=== PATIENT | female | born 1985 | race Caucasian/White ===

== ENCOUNTER 2017-02-07 19:55 | Emergency (ER) | payer MEDICAID ==
[~2017-02-07] VITALS: Ht 172.7 cm; Wt 53.6 kg
[~2017-02-07 19:55] MED LIST: ACET-66 PO; ALBU8.5H IH; ASPI-825 PO; BACL10TA PO; BUDE10.2 IH; BUSP15 PO; CARAL PO; CETI-260 PO; DICY10 PO; DIPH25 PO; FISH1CAP49 PO; FLUT16H NASAL; FURO20I IM; GABA600T PO; GARL600T2 PO; KDUR10 PO; LORA10TA7 PO; METO25 PO; MONT10TA21 PO; NITR.4 SL; OMEP20 PO; ONDA4 PO; PRED10 PO; RANI150T7 PO; SUMA25TA9 PO
[2017-02-07] MEDS ORDERED: SACU1TAB PO (20:11)
[2017-02-07] MEDS ORDERED: METO50 PO (20:11)
[2017-02-07 20:57] LABS: BASOPHILS % (AUTO) 0.1 % (0.0-2.0); EOSINOPHILS % (AUTO) 0.1 % (1.0-6.0); HEMATOCRIT 41.6 % (36-46); HEMOGLOBIN 14.3 g/dL (12.0-16.0); LYMPHOCYTES # (AUTO) 1.3 K/uL (1.0-4.8); LYMPHOCYTES % (AUTO) 12.5 % (22.0-44.0); MEAN CORPUSCULAR HEMOGLOBIN 33.4 pg (26.0-34.0); MEAN CORPUSCULAR HGB CONC 34.3 G/dL (31.0-37.0); MEAN CORPUSCULAR VOLUME 97 fL (80-100); MONOCYTES # (AUTO) 0.8 K/uL (0.1-1.0); MONOCYTES % (AUTO) 7.9 % (2.0-9.0); NEUTROPHILS # (AUTO) 8.4 K/uL (1.8-7.7); NEUTROPHILS % (AUTO) 79.4 % (40.0-70.0); PLATELET COUNT (AUTO) 240 K/uL (150-450); RED BLOOD CELL COUNT(AUTO) 4.28 MIL/uL (4.00-5.20); RED CELL DISTRIBUTION WIDTH 14.3 % (11.5-14.5); WHITE BLOOD COUNT (AUTO) 10.5 K/uL (4.5-11.0)
[2017-02-07 21:04] LABS: ANION GAP 7 mmol/L (8-16); CALCIUM, TOTAL 8.9 mg/dL (8.8-10.5); CARBON DIOXIDE 29 mmol/L (22-29); CHLORIDE 104 mmol/L (98-107); CREATININE 0.88 mg/dL (0.60-1.30); GLOMERULAR FILTR. RATE CALC > 60 mL/min (>60); SODIUM SERUM 140 mmol/L (136-145); UREA NITROGEN, BLOOD 14 mg/dL (7-18)
[2017-02-07 21:10] LABS: ALANINE AMINOTRANSFERASE 28 U/L (12-78); ALBUMIN 4.1 g/dL (3.4-5.0); ASPARTATE AMINOTRANSFERASE 19 U/L (15-37); BILIRUBIN,TOTAL 0.2 mg/dL (0.1-1.0); TOTAL PROTEIN, SERUM 6.8 g/dL (6.4-8.2)
[2017-02-07 21:33] LABS: ADD UA MICROSCOPIC NO; APPEARANCE,URINE CLEAR (CLEAR); GLUCOSE, URINE (UA) NEGATIVE (NEGATIVE); KETONES,URINE NEGATIVE (NEGATIVE); LEUKOCYTE ESTERASE ,URINE NEGATIVE (NEGATIVE); OCCULT BLOOD,URINE NEGATIVE (NEGATIVE); PROTEIN,URINE NEGATIVE (NEGATIVE)
[2017-02-07 22:52] VITALS: BP 121/79
== END 2017-02-07 23:21 | disposition home or self-care (01) ==
LOC: EMS 19:59
DX: K59.00 Constipation, unspecified (principal); I50.9 Heart failure, unspecified; N28.9 Disorder of kidney and ureter, unspecified; F17.210 Nicotine dependence, cigarettes, uncomplicated; Z88.1 Allergy status to other antibiotic agents; Z87.442 Personal history of urinary calculi
CPT/HCPCS: 74176; 99285

== ENCOUNTER 2017-04-22 14:49 | Emergency (ER) | payer MEDICAID ==
[~2017-04-22] VITALS: Ht 157.5 cm; Wt 46.5 kg
[~2017-04-22 14:49] MED LIST changes: +METO50 PO; -OMEP20 PO; +SACU1TAB PO
[2017-04-22] MEDS ORDERED: PERTUSS(ACELL),DIPH,TET VAC/PF 0.5 ML VIAL IM ONE (17:15)
[2017-04-22] MEDS ORDERED: GARL400T2 PO (17:21)
[2017-04-22] MEDS ORDERED: SUMA100T PO (17:21)
[2017-04-22] MEDS ORDERED: SLOWK8 PO (17:21)
[2017-04-22 17:30] VITALS: BP 110/59
== END 2017-04-22 17:32 | disposition home or self-care (01) ==
LOC: EMS 14:55
DX: S60.561A Insect bite (nonvenomous) of right hand, initial encounter (principal); I50.9 Heart failure, unspecified; G40.909 Epilepsy, unspecified, not intractable, without status epilepticus; F17.210 Nicotine dependence, cigarettes, uncomplicated; Z85.89 Personal history of malignant neoplasm of other organs and systems; Z87.442 Personal history of urinary calculi; Z79.82 Long term (current) use of aspirin; Z79.899 Other long term (current) drug therapy; W57.XXXA Bitten or stung by nonvenomous insect and other nonvenomous arthropods, initial encounter; Y93.89 Activity, other specified; Y92.89 Other specified places as the place of occurrence of the external cause; Y99.8 Other external cause status
CPT/HCPCS: 90471; 90715; 99283

== ENCOUNTER → 2017-12-13 | Outpatient (CLI) | payer MEDICAID ==
[~2017-12-13] MED LIST changes: -ALBU8.5H IH; +ALBU8.5H8 IH; -CETI-260 PO; +CETI-290 PO; +GARL400T2 PO; -GARL600T2 PO; -KDUR10 PO; -METO25 PO; +SLOWK8 PO; +SUMA100T PO; -SUMA25TA9 PO
== END | disposition home or self-care (01) ==
LOC: RADMN 12:50
PROVIDERS: ATTEND Internal Medicine Cardiovascular Disease
DX: I50.20 Unspecified systolic (congestive) heart failure (principal); I42.5 Other restrictive cardiomyopathy
CPT/HCPCS: 78472; Q3010

== ENCOUNTER 2018-03-23 21:11 | Emergency (ER) | payer MEDICAID ==
[~2018-03-23] VITALS: Ht 172.7 cm; Wt 79.5 kg
[2018-03-23] MEDS ORDERED: SACU1TAB7 PO (21:35)
[2018-03-23] MEDS ORDERED: ALEN10 PO (21:35)
[2018-03-23 22:06] LABS: BASOPHILS % (AUTO) 0.2 % (0.0-2.0); EOSINOPHILS % (AUTO) 0.1 % (1.0-6.0); HEMATOCRIT 41.2 % (36-46); HEMOGLOBIN 14.4 g/dL (12.0-16.0); LYMPHOCYTES # (AUTO) 0.5 K/uL (1.0-4.8); LYMPHOCYTES % (AUTO) 5.6 % (22.0-44.0); MEAN CORPUSCULAR HEMOGLOBIN 32.6 pg (26.0-34.0); MEAN CORPUSCULAR VOLUME 93 fL (80-100); MONOCYTES # (AUTO) 0.1 K/uL (0.1-1.0); MONOCYTES % (AUTO) 1.5 % (2.0-9.0); NEUTROPHILS # (AUTO) 8.5 K/uL (1.8-7.7); PLATELET COUNT (AUTO) 207 K/uL (150-450); RED BLOOD CELL COUNT(AUTO) 4.43 MIL/uL (4.00-5.20); RED CELL DISTRIBUTION WIDTH 13.4 % (11.5-14.5)
[2018-03-23 22:07] LABS: NEUTROPHILS % (AUTO) 92.6 % (40.0-70.0)
[2018-03-23 22:15] LABS: ANION GAP 9 mmol/L (8-16); CALCIUM, TOTAL 9.2 mg/dL (8.8-10.5); CARBON DIOXIDE 28 mmol/L (22-29); CHLORIDE 101 mmol/L (98-107); CREATININE 0.82 mg/dL (0.60-1.30); GLOMERULAR FILTR. RATE CALC > 60 mL/min (>60); GLUCOSE,RANDOM 109 mg/dL (70-110); POTASSIUM 3.8 mmol/L (3.5-5.1); SODIUM SERUM 138 mmol/L (136-145); UREA NITROGEN, BLOOD 9 mg/dL (7-18)
[2018-03-23 22:16] LABS: PROTHROMBIN TIME 10.2 SEC (9.4-11.6)
[2018-03-23 22:24] LABS: PLATELET MORPHOLOGY COMMENT LARGE PLTS PRESENT
[2018-03-23 22:26] LABS: B-TYPE NATRIURETIC PEPTIDE 35 pg/mL (0-100)
[2018-03-23 22:33] LABS: APPEARANCE,URINE CLEAR (CLEAR); BILIRUBIN,URINE NEGATIVE (NEGATIVE); GLUCOSE, URINE (UA) NEGATIVE (NEGATIVE); KETONES,URINE NEGATIVE (NEGATIVE); LEUKOCYTE ESTERASE ,URINE NEGATIVE (NEGATIVE); NITRATE,URINE NEGATIVE (NEGATIVE); OCCULT BLOOD,URINE NEGATIVE (NEGATIVE); PROTEIN,URINE NEGATIVE (NEGATIVE); UROBILINOGEN,URINE 0.2 mg/dL (<=1.0)
[2018-03-23 22:37] LABS: AMPHET/METH SCREEN,URINE NEGATIVE (NEGATIVE); BARBITURATE SCREEN, URINE NEGATIVE (NEGATIVE); BENZODIAZEPINES SCREEN,URINE NEGATIVE (NEGATIVE); CANNABINOID SCREEN,URINE NEGATIVE (NEGATIVE); COCAINE SCREEN,URINE NEGATIVE (NEGATIVE); METHADONE SCREEN, URINE NEGATIVE (NEGATIVE); OPIATE SCREEN,URINE NEGATIVE (NEGATIVE)
[2018-03-23 22:38] LABS: PHENCYCLIDINE SCREEN,URINE NEGATIVE (NEGATIVE)
[2018-03-23 22:39] LABS: ALANINE AMINOTRANSFERASE 29 U/L (12-78); ALKALINE PHOSPHATASE 32 U/L (46-116); ASPARTATE AMINOTRANSFERASE 23 U/L (15-37); BILIRUBIN,TOTAL 0.3 mg/dL (0.1-1.0); CREATINE KINASE MB 0.6 ng/mL (0-5); CREATINE KINASE, TOTAL 91 U/L (26-192); TOTAL PROTEIN, SERUM 7.1 g/dL (6.4-8.2)
[2018-03-24 00:30] VITALS: BP 112/76
== END 2018-03-24 00:31 | disposition home or self-care (01) ==
LOC: EMS 21:12
DX: G43.909 Migraine, unspecified, not intractable, without status migrainosus (principal); J44.9 Chronic obstructive pulmonary disease, unspecified; I50.9 Heart failure, unspecified; K21.9 Gastro-esophageal reflux disease without esophagitis; F17.210 Nicotine dependence, cigarettes, uncomplicated; Z88.1 Allergy status to other antibiotic agents; Z79.899 Other long term (current) drug therapy
CPT/HCPCS: 70450; 93005; 99285; 99406

== ENCOUNTER → 2018-04-11 | Day surgery (SDC) | payer MEDICAID ==
[~2018-04-11] VITALS: Ht 172.7 cm; Wt 53.2 kg
[~2018-04-11] MED LIST changes: +0.9% SODIUM CHLORIDE 10 ML SYRINGE IVP PRN; +ALEN10 PO; +ASCO1TAB43 PO; +CALC-1038 PO; +GABA-533 PO; +IOVERSOL 350 MG/ML 150 ML VIAL ONE; +METOPROLOL TARTRATE 5 MG/5 ML VIAL ONE; +METOPROLOL TARTRATE 50 MG TABLET PO PRN; +MULT-1203 PO; +NITROGLYCERIN 400 MCG/SUBLINGUAL SPRAY 4.9 GM BOTTLE SL ONE; +PRED5 PO; -SACU1TAB PO; +SACU1TAB7 PO; +SODIUM CHLORIDE 0.9% 100 ML ONE; +VITA-328 PO
[2018-04-11 09:31] LABS: ANION GAP 7 mmol/L (8-16); CALCIUM, TOTAL 9.6 mg/dL (8.8-10.5); CARBON DIOXIDE 31 mmol/L (22-29); CHLORIDE 102 mmol/L (98-107); CREATININE 0.93 mg/dL (0.60-1.30); GLOMERULAR FILTR. RATE CALC > 60 mL/min (>60); GLUCOSE,RANDOM 85 mg/dL (70-110); POTASSIUM 4.3 mmol/L (3.5-5.1); SODIUM SERUM 140 mmol/L (136-145); UREA NITROGEN, BLOOD 10 mg/dL (7-18)
== END | disposition home or self-care (01) ==
LOC: SURGERY 08:55 → EDSTATUS 11:00
PROVIDERS: ATTEND Internal Medicine Cardiovascular Disease
DX: I49.8 Other specified cardiac arrhythmias (principal); I49.01 Ventricular fibrillation; F41.8 Other specified anxiety disorders; G89.4 Chronic pain syndrome; J44.9 Chronic obstructive pulmonary disease, unspecified; D89.89 Other specified disorders involving the immune mechanism, not elsewhere classified; F17.210 Nicotine dependence, cigarettes, uncomplicated; F10.21 Alcohol dependence, in remission; M47.814 Spondylosis without myelopathy or radiculopathy, thoracic region; G43.909 Migraine, unspecified, not intractable, without status migrainosus; M85.88 Other specified disorders of bone density and structure, other site; E05.80 Other thyrotoxicosis without thyrotoxic crisis or storm; I11.0 Hypertensive heart disease with heart failure; I50.20 Unspecified systolic (congestive) heart failure; I95.1 Orthostatic hypotension; F42.8 Other obsessive-compulsive disorder; F43.10 Post-traumatic stress disorder, unspecified; K21.9 Gastro-esophageal reflux disease without esophagitis; I42.5 Other restrictive cardiomyopathy; Z85.89 Personal history of malignant neoplasm of other organs and systems; Z79.82 Long term (current) use of aspirin; Z79.2 Long term (current) use of antibiotics; Z79.1 Long term (current) use of non-steroidal anti-inflammatories (NSAID); Z95.828 Presence of other vascular implants and grafts; Z86.74 Personal history of sudden cardiac arrest; Z79.891 Long term (current) use of opiate analgesic; Z88.1 Allergy status to other antibiotic agents; Z95.810 Presence of automatic (implantable) cardiac defibrillator; Z85.41 Personal history of malignant neoplasm of cervix uteri; Z87.01 Personal history of pneumonia (recurrent); Z79.899 Other long term (current) drug therapy; Z98.890 Other specified postprocedural states; Z82.41 Family history of sudden cardiac death
CPT/HCPCS: 36415; 75574; 80048; 84703; 93005; J3490; J7050; Q9967

== ENCOUNTER 2019-01-14 21:45 | Emergency (ER) | payer MEDICAID ==
[~2019-01-14] VITALS: Ht 172.7 cm; Wt 52.3 kg
[~2019-01-14 21:45] MED LIST changes: -0.9% SODIUM CHLORIDE 10 ML SYRINGE IVP PRN; -ACET-66 PO; -CETI-290 PO; +CETI10TA59 PO; -GABA600T PO; -IOVERSOL 350 MG/ML 150 ML VIAL ONE; -METOPROLOL TARTRATE 5 MG/5 ML VIAL ONE; -METOPROLOL TARTRATE 50 MG TABLET PO PRN; -NITROGLYCERIN 400 MCG/SUBLINGUAL SPRAY 4.9 GM BOTTLE SL ONE; -PRED10 PO; -SODIUM CHLORIDE 0.9% 100 ML ONE
[2019-01-14 22:30] VITALS: BP 108/65
[2019-01-14] MEDS ORDERED: PB/HYOSCY/ATR/SCOP/LIDO/MAALOX 55 ML BOTTLE PO ONE (23:15)
== END 2019-01-15 00:43 | disposition left against medical advice (07) ==
LOC: EMS 21:47
DX: T18.108A Unspecified foreign body in esophagus causing other injury, initial encounter (principal); F41.9 Anxiety disorder, unspecified; G43.909 Migraine, unspecified, not intractable, without status migrainosus; F17.210 Nicotine dependence, cigarettes, uncomplicated; J44.9 Chronic obstructive pulmonary disease, unspecified; I50.9 Heart failure, unspecified; Z88.1 Allergy status to other antibiotic agents; Z79.899 Other long term (current) drug therapy; Z79.82 Long term (current) use of aspirin; Y92.89 Other specified places as the place of occurrence of the external cause

== ENCOUNTER 2022-06-22 18:28 | Emergency (ER) | payer MEDICAID ==
[~2022-06-22] VITALS: Ht 172.7 cm; Wt 45.5 kg
[~2022-06-22 18:28] MED LIST changes: -ALEN10 PO; +ALEN10TA33 PO; +CETI-450 PO; -CETI10TA59 PO; +DICY-1 PO; -DICY10 PO; -FLUT16H NASAL; +FLUT16SP NASAL; +FURO10VI IM; -FURO20I IM; +GABA-1201 PO; -GABA-533 PO; +MONT-35 PO; -MONT10TA21 PO; -NITR.4 SL; +NITR0.4T52 SL; +ONDA-104 PO; -ONDA4 PO; +POTA8TAB71 PO; +PRED-549 PO; -PRED5 PO; -SLOWK8 PO
[2022-06-22 20:32] LABS: BASOPHILS % (AUTO) 0.2 % (0.0-2.0); EOSINOPHILS % (AUTO) 0.1 % (1.0-6.0); HEMATOCRIT 39.3 % (36-46); HEMOGLOBIN 13.3 g/dL (12.0-16.0); LYMPHOCYTES # (AUTO) 1.7 K/uL (1.0-4.8); LYMPHOCYTES % (AUTO) 26.4 % (22.0-44.0); MEAN CORPUSCULAR HEMOGLOBIN 32.2 pg (26.0-34.0); MEAN CORPUSCULAR HGB CONC 33.7 G/dL (31.0-37.0); MEAN CORPUSCULAR VOLUME 96 fL (80-100); MONOCYTES # (AUTO) 0.5 K/uL (0.1-1.0); MONOCYTES % (AUTO) 8.1 % (2.0-9.0); NEUTROPHILS # (AUTO) 4.3 K/uL (1.8-7.7); NEUTROPHILS % (AUTO) 65.2 % (40.0-70.0); PLATELET COUNT (AUTO) 178 K/uL (150-450); RED BLOOD CELL COUNT(AUTO) 4.11 MIL/uL (4.00-5.20); RED CELL DISTRIBUTION WIDTH 12.6 % (11.5-14.5)
[2022-06-22 20:53] LABS: ANION GAP 6 mmol/L (8-16); CALCIUM, TOTAL 9.8 mg/dL (8.8-10.5); CARBON DIOXIDE 30 mmol/L (22-29); CHLORIDE 104 mmol/L (98-107); CREATININE 0.89 mg/dL (0.60-1.30); GLOMERULAR FILTR. RATE CALC > 60 mL/min (>60); GLUCOSE,RANDOM 87 mg/dL (70-110); POTASSIUM 3.9 mmol/L (3.5-5.1); SODIUM SERUM 140 mmol/L (136-145); UREA NITROGEN, BLOOD 11 mg/dL (7-18)
[2022-06-22 20:56] VITALS: BP 101/59
[2022-06-22 20:57] LABS: ALANINE AMINOTRANSFERASE 20 U/L (12-78); ALBUMIN 4.1 g/dL (3.4-5.0); ALKALINE PHOSPHATASE 23 U/L (46-116); ASPARTATE AMINOTRANSFERASE 16 U/L (15-37); BILIRUBIN,TOTAL 0.3 mg/dL (0.1-1.0)
== END 2022-06-23 01:28 | disposition left against medical advice (07) ==
LOC: EMS 18:28
DX: F41.9 Anxiety disorder, unspecified (principal); R07.9 Chest pain, unspecified; C80.1 Malignant (primary) neoplasm, unspecified; J44.9 Chronic obstructive pulmonary disease, unspecified; K21.9 Gastro-esophageal reflux disease without esophagitis; N20.0 Calculus of kidney; G43.909 Migraine, unspecified, not intractable, without status migrainosus; N39.0 Urinary tract infection, site not specified; N83.209 Unspecified ovarian cyst, unspecified side; F17.210 Nicotine dependence, cigarettes, uncomplicated; I50.9 Heart failure, unspecified; Z98.890 Other specified postprocedural states; T82.198A Other mechanical complication of other cardiac electronic device, initial encounter; Y84.8 Other medical procedures as the cause of abnormal reaction of the patient, or of later complication, without mention of misadventure at the time of the procedure
CPT/HCPCS: 71045; 80053; 84484; 85025; 93005; 99285; 36415-L1; 36415-TC

== ENCOUNTER 2023-09-06 19:24 | Emergency (ER) | payer MEDICAID ==
[~2023-09-06] VITALS: Ht 172.7 cm; Wt 52.0 kg
[~2023-09-06 19:24] MED LIST changes: +DIPH-1243 PO; -DIPH25 PO; -SUMA100T PO; +SUMA100T21 PO
[2023-09-06 20:24] LABS: BASOPHILS % (AUTO) 0.3 % (0.0-2.0); EOSINOPHILS % (AUTO) 0.1 % (1.0-6.0); HEMATOCRIT 34.4 % (36-46); HEMOGLOBIN 12.1 g/dL (12.0-16.0); LYMPHOCYTES # (AUTO) 1.7 K/uL (1.0-4.8); LYMPHOCYTES % (AUTO) 29.6 % (22.0-44.0); MEAN CORPUSCULAR HEMOGLOBIN 32.9 pg (26.0-34.0); MEAN CORPUSCULAR HGB CONC 35.1 G/dL (31.0-37.0); MEAN CORPUSCULAR VOLUME 94 fL (80-100); MONOCYTES # (AUTO) 0.5 K/uL (0.1-1.0); MONOCYTES % (AUTO) 8.7 % (2.0-9.0); NEUTROPHILS # (AUTO) 3.5 K/uL (1.8-7.7); NEUTROPHILS % (AUTO) 61.3 % (40.0-70.0); PLATELET COUNT (AUTO) 185 K/uL (150-450); RED BLOOD CELL COUNT(AUTO) 3.68 MIL/uL (4.00-5.20); WHITE BLOOD COUNT (AUTO) 5.7 K/uL (4.5-11.0)
[2023-09-06 21:24] LABS: ANION GAP 10 mmol/L (8-16); CALCIUM, TOTAL 9.9 mg/dL (8.8-10.5); CARBON DIOXIDE 30 mmol/L (22-29); CHLORIDE 102 mmol/L (98-107); CREATININE 0.84 mg/dL (0.60-1.30); GLOMERULAR FILTR. RATE CALC > 60 mL/min (>60); GLUCOSE,RANDOM 83 mg/dL (70-110); POTASSIUM 3.5 mmol/L (3.5-5.1); SODIUM SERUM 142 mmol/L (136-145); UREA NITROGEN, BLOOD 12 mg/dL (7-18)
[2023-09-06 21:36] LABS: ALANINE AMINOTRANSFERASE 22 U/L (12-78); ALBUMIN 4.5 g/dL (3.4-5.0); ALKALINE PHOSPHATASE 24 U/L (46-116); ASPARTATE AMINOTRANSFERASE 16 U/L (15-37); BILIRUBIN,TOTAL 0.4 mg/dL (0.1-1.0); HCG,QUANTITATIVE < 1 mIU/mL (0-6); LIPASE 24 U/L (16-77); TOTAL PROTEIN, SERUM 6.9 g/dL (6.4-8.2)
[2023-09-06 22:02] LABS: APPEARANCE,URINE CLEAR (CLEAR); BILIRUBIN,URINE NEGATIVE (NEGATIVE); COLOR,URINE LIGHT YELLOW (YELLOW); GLUCOSE, URINE (UA) NEGATIVE (NEGATIVE); KETONES,URINE NEGATIVE (NEGATIVE); LEUKOCYTE ESTERASE ,URINE NEGATIVE (NEGATIVE); NITRATE,URINE NEGATIVE (NEGATIVE); OCCULT BLOOD,URINE NEGATIVE (NEGATIVE); PH,URINE 5.5 (5.0-8.0); PROTEIN,URINE NEGATIVE (NEGATIVE); SPECIFIC GRAVITIY, URINE 1.009 (1.003-1.030); UROBILINOGEN,URINE <=1.0 mg/dL (<=1.0)
[2023-09-06] MEDS ORDERED: POLY17PO47 PO (23:18)
[2023-09-06] MEDS ORDERED: NA P133E4 PR (23:18)
[2023-09-06 23:45] VITALS: BP 118/65; PULSE 69; RESP 18; TEMP 97.3
== END 2023-09-07 00:14 | disposition home or self-care (01) ==
LOC: EMS 19:25
DX: K59.00 Constipation, unspecified (principal); F41.9 Anxiety disorder, unspecified; J44.9 Chronic obstructive pulmonary disease, unspecified; G43.909 Migraine, unspecified, not intractable, without status migrainosus; F17.210 Nicotine dependence, cigarettes, uncomplicated; Z98.890 Other specified postprocedural states; Z88.8 Allergy status to other drugs, medicaments and biological substances
CPT/HCPCS: 74022; 80053; 83690; 84702; 85025; 99284